=== PATIENT | female | born 1995 | race Caucasian/White ===

== ENCOUNTER 2016-08-26 11:40 | Emergency (ER) | payer BC ==
[2016-08-26] MEDS ORDERED: HYDROmorphone 1 MG/ML Syringe IVPUSH ONE (12:05)
[2016-08-26] MEDS ORDERED: Sodium Chloride 0.9% 10 ML Syringe FLUSH PRN ×2 (12:05→12:37)
[2016-08-26] MEDS ORDERED: Ondansetron 4 MG/2 ML SDV IVPUSH ONE (12:05)
[2016-08-26] MEDS ORDERED: Sodium Chloride 0.9% 1,000 ML IV ONE (12:05)
--- NOTE | 2016-08-26 12:13 | EDM.PDOC ---
ED HPI GENERAL MEDICAL PROBLEM - General Chief Complaint: Abdominal Pain Stated Complaint: ABDOMINAL PAIN Time Seen by Provider: 08/26/16 12:00 Source of Information: Reports: Patient History Limitations: Reports: No Limitations - History of Present Illness INITIAL COMMENTS - FREE TEXT/NARRATIVE: 21-year-old female presents for evaluation and treat of right lower quadrant abdominal pain. Patient reports that the abdominal pain woke her from sleep around 3 AM this morning. She describes the pain as a constant sharp pain and rates it as a 6-1/2 to 7/10. 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 She was went to work today but reports any bumps in the road and getting on and off the truck may be abdominal pain much worse. She reports associated symptoms of nausea and a decreased appetite. She states that she feels warm but has not had any fevers. She denies any vomiting, dysuria, hematuria or constipation. She reports that her urine did look darker this morning. Last bowel movement was yesterday. Reports it was small and hard. She has struggled with constipation in the past. Last intake was around 5 AM this morning. She had some yogurt and a few cherries. No surgeries to her abdomen. Patient is on oral contraceptive pills. No other medications. No chronic medical conditions. She reports she is supposed to start her menstrual cycle in the next few days. 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 Right Abdominal Pain Score (Numeric/FACES): 6 - Related Data Allergies Allergy/AdvReac Type Severity Reaction Status Date / Time No Known Allergies Allergy Verified 08/26/16 11:51 Home Meds: Home Meds Levonorgestrel-Ethin Estradiol [Lutera-28 Tablet] 08/26/16 [History] Magnesium Citrate [Citroma] 296 ml PO ASDIRECTED #1 bottle 08/26/16 [Rx] Past Medical History - Past Health History Medical/Surgical History: Denies Medical/Surgical History Psychiatric History: Reports: Depression Social & Family History - Tobacco Use Smoking Status *Q: Never Smoker Years of Tobacco use: 1 Month Tobacco Last Used: 2 weeks - Alcohol Use Days Per Week of Alcohol Use: 0 - Recreational Drug Use Recreational Drug Use: No ED ROS GENERAL - Review of Systems Review Of Systems: See Below Constitutional: Reports: Decreased Appetite. Denies: Fever GI/Abdominal: Reports: Abdominal Pain (RLQ), Nausea. Denies: Constipation, Vomiting : Reports: Other (reports dark urine: LMP about 3 weeks ago, she is on OCPs). Denies: Dysuria, Hematuria ED EXAM, GI/ABD - Physical Exam Exam: See Below Exam Limited By: No Limitations General Appearance: Alert, WD/WN, Mild Distress Respiratory/Chest: No Respiratory Distress, Lungs Clear, Normal Breath Sounds Cardiovascular: Normal Peripheral Pulses, Regular Rate, Rhythm, No Murmur GI/Abdominal: Soft, No Distention, Hypoactive Bowel Sounds, Tenderness (RLQ), Guarding, Rebound, McBurney's Sign, Psoas Sign, Obturator Sign Neurological: Alert, Oriented, Normal Cognition Psychiatric: Normal Affect, Normal Mood Skin Exam: Warm, Dry, Normal Color Course - Vital Signs Last Recorded V/S: Last Vital Signs Temp 36.9 C 08/26/16 11:52 Pulse 68 08/26/16 14:55 Resp 16 08/26/16 14:55 BP 120/80 08/26/16 14:55 Pulse Ox 100 08/26/16 14:55 - Orders/Labs/Meds Orders: Active Orders 24 hr Category Date Time Status Peripheral IV Care [RC] . DIRECTED Care 08/26/16 12:06 Active Peripheral IV Insertion Adult [OM.PC] Routine Oth 08/26/16 12:05 Ordered Labs: Laboratory Tests 08/26/16 08/26/16 08/26/16 Range/Units 12:10 12:10 12:10 WBC 5.26 (3.98-10.04) K/mm3 RBC 4.28 (3.98-5.22) M/mm3 Hgb 13.5 (11.2-15.7) gm/L Hct 39.9 (34.1-44.9) % MCV 93.2 (79.4-94.8) fl MCH 31.5 (25.6-32.2) pg MCHC 33.8 (32.2-35.5) g/dl RDW Std Deviation 42.4 (36.4-46.3) fL Plt Count 216 (182-369) K/mm3 MPV 10.4 (9.4-12.3) fl Neutrophils % (Manual) 61 H (40-60) % Band Neutrophils % 2 (0-10) % Lymphocytes % (Manual) 26 (20-40) % Atypical Lymphs % 0 % Monocytes % (Manual) 11 H (2-10) % Eosinophils % (Manual) 0 L (0.7-5.8) % Basophils % (Manual) 0 L (0.1-1.2) Platelet Estimate Adequate RBC Morph Comment Normal Sodium 140 (136-145) mEq/L Potassium 3.9 (3.5-5.1) mEq/L Chloride 105 (98-107) mEq/L Carbon Dioxide 25 (21-32) mEq/L Anion Gap 13.9 (5-15) BUN 9 (7-18) mg/dL Creatinine 0.8 (0.55-1.02) mg/dL Est Cr Clr Drug Dosing TNP Estimated GFR (MDRD) > 60 (>60) mL/min BUN/Creatinine Ratio 11.3 L (14-18) Glucose 105 (74-106) mg/dL Calcium 9.0 (8.5-10.1) mg/dL Total Bilirubin 0.6 (0.2-1.0) mg/dL AST 17 (15-37) U/L ALT 31 (14-59) U/L Alkaline Phosphatase 69 (46-116) U/L C-Reactive Protein 0.2 (<1.0) mg/dL Total Protein 7.3 (6.4-8.2) g/dl Albumin 3.9 (3.4-5.0) g/dl Globulin 3.4 gm/dL Albumin/Globulin Ratio 1.2 (1-2) HCG, Qual Negative (NEGATIVE) Urine Color (Yellow) Urine Appearance (Clear) Urine pH (5.0-8.0) Ur Specific [place] (1.005-1.030) Urine Protein (Negative) Urine Glucose (UA) (Negative) Urine Ketones (Negative) Urine Occult Blood (Negative) Urine Nitrite (Negative) Urine Bilirubin (Negative) Urine Urobilinogen (0.2-1.0) Ur Leukocyte Esterase (Negative) Urine RBC (0-5) /hpf Urine WBC (0-5) /hpf Ur Epithelial Cells (0-5) /hpf Amorphous Sediment (NOT SEEN) /hpf Urine Bacteria (FEW) /hpf Urine Mucus (FEW) /hpf 08/26/16 Range/Units 12:15 WBC (3.98-10.04) K/mm3 RBC (3.98-5.22) M/mm3 Hgb (11.2-15.7) gm/L Hct (34.1-44.9) % MCV (79.4-94.8) fl MCH (25.6-32.2) pg MCHC (32.2-35.5) g/dl RDW Std Deviation (36.4-46.3) fL Plt Count (182-369) K/mm3 MPV (9.4-12.3) fl Neutrophils % (Manual) (40-60) % Band Neutrophils % (0-10) % Lymphocytes % (Manual) (20-40) % Atypical Lymphs % % Monocytes % (Manual) (2-10) % Eosinophils % (Manual) (0.7-5.8) % Basophils % (Manual) (0.1-1.2) Platelet Estimate RBC Morph Comment Sodium (136-145) mEq/L Potassium (3.5-5.1) mEq/L Chloride (98-107) mEq/L Carbon Dioxide (21-32) mEq/L Anion Gap (5-15) BUN (7-18) mg/dL Creatinine (0.55-1.02) mg/dL Est Cr Clr Drug Dosing Estimated GFR (MDRD) (>60) mL/min BUN/Creatinine Ratio (14-18) Glucose (74-106) mg/dL Calcium (8.5-10.1) mg/dL Total Bilirubin (0.2-1.0) mg/dL AST (15-37) U/L ALT (14-59) U/L Alkaline Phosphatase (46-116) U/L C-Reactive Protein (<1.0) mg/dL Total Protein (6.4-8.2) g/dl Albumin (3.4-5.0) g/dl Globulin gm/dL Albumin/Globulin Ratio (1-2) HCG, Qual (NEGATIVE) Urine Color Yellow (Yellow) Urine Appearance Slt cloudy H (Clear) Urine pH 8.5 H (5.0-8.0) Ur Specific [place] 1.020 (1.005-1.030) Urine Protein 1+ H (Negative) Urine Glucose (UA) Negative (Negative) Urine Ketones Negative (Negative) Urine Occult Blood Negative (Negative) Urine Nitrite Negative (Negative) Urine Bilirubin Negative (Negative) Urine Urobilinogen 1.0 (0.2-1.0) Ur Leukocyte Esterase Negative (Negative) Urine RBC 0-5 (0-5) /hpf Urine WBC 0-5 (0-5) /hpf Ur Epithelial Cells 0-5 (0-5) /hpf Amorphous Sediment Many H (NOT SEEN) /hpf Urine Bacteria Occasional (FEW) /hpf Urine Mucus Few (FEW) /hpf Meds: Medications Discontinued Medications Generic Name Dose Route Start Last Admin Trade Name Freq PRN Reason Stop Dose Admin Diatrizoate Meglum/Diatrizoate Sod 120 ml 08/26/16 12:38 08/26/16 13:17 Gastrografin 37% PO 08/26/16 12:39 90 ml ONETIME ONE Administration Hydromorphone HCl 1 mg 08/26/16 12:05 08/26/16 12:25 Dilaudid IVPUSH 08/26/16 12:06 1 mg ONETIME ONE Administration Sodium Chloride 1,000 mls @ 999 mls/hr 08/26/16 12:05 08/26/16 12:23 Normal Saline IV 08/26/16 13:05 999 mls/hr ONETIME ONE Administration Iopamidol 150 ml 08/26/16 12:37 08/26/16 13:16 Isovue-300 (61%) IVPUSH 08/26/16 12:38 125 ml ONETIME ONE Administration Ketorolac Tromethamine 30 mg 08/26/16 13:54 08/26/16 14:01 Toradol IVPUSH 08/26/16 13:55 30 mg ONETIME ONE Administration Ondansetron HCl 4 mg 08/26/16 12:05 08/26/16 12:24 Zofran IVPUSH 08/26/16 12:06 4 mg ONETIME ONE Administration Sodium Chloride 10 ml 08/26/16 12:05 08/26/16 12:27 Saline Flush FLUSH 10 ml ASDIRECTED PRN Administration Keep Vein Open Sodium Chloride 10 ml 08/26/16 12:37 08/26/16 13:17 Saline Flush FLUSH 10 ml ONETIME PRN Administration IV FLUSH - Radiology Interpretation Free Text/Narrative:: CT of the abdomen and pelvis with contrast impression per Dr. Smith: Impression: 1. Increased stool within the cecum and right colon with lesser amounts of increased stool throughout other portions of the colon. 2. Small amount of free fluid within the cul-de-sac believed to be physiologic. 3. Other incidental findings. - Re-Assessments/Exams Free Text/Narrative Re-Assessment/Exam: 08/26/16 12:13 Exam is highly suspicious for acute appendicitis. Will give zofran, 1 L NS and Dilaudid for pain control. Labs and Ct ordered. 08/26/16 13:55 Labs returned. WBC is 5.25 with 2 bands, hgb is 13.5 and plts are 216 HCG is negative CRP is normal at 0.2 Sodium is 140, potassium is 3.9 and chloride is 105. Anion gap is 13.9 and glucose is 103 Ua has 1+ protein; no leuks or nitrites. Reviewed labs and CT with the patient. Continues to have discomfort. Will give toradol at this time for pain relief. 08/26/16 14:32 Pain improved after IV toradol. Will discharge home with a bottle of mag citrate. Discharge instructions as documented. Departure - Departure Time of Disposition: 14:35 Disposition: Home, Self-Care 01 Condition: fair Clinical Impression: Constipation - Discharge Information Prescriptions: Magnesium Citrate [Citroma] 296 ml PO ASDIRECTED #1 bottle Instructions: Constipation, Adult, [id number] Referrals: Chivo De Paz MD [Primary Care Provider] - Forms: ED Department Discharge Additional Instructions: make sure you Drink plenty of fluids. The one bottle of mag citrate over an hour. Expect to have one or 2 large bowel movements today. For normal bowel maintenance recommend MiraLax available [id number] every day or every other day. Follow up with family medicine or internal medicine for symptoms do not improve. Recommend Ailyn Louis at the [facility]. Call [phone] to schedule with her. Please return to the ER should your symptoms change or worsen. - My Orders Last 24 Hours: My Active Orders 08/26/16 12:05 Peripheral IV Insertion Adult [OM.PC] Routine 08/26/16 12:06 Peripheral IV Care [RC] . DIRECTED - Assessment/Plan Last 24 Hours: My Active Orders 08/26/16 12:05 Peripheral IV Insertion Adult [OM.PC] Routine 08/26/16 12:06 Peripheral IV Care [RC] . DIRECTED
[2016-08-26] MEDS ORDERED: Iopamidol 612 MG/ML 150 ML Bottle IVPUSH ONE (12:37)
[2016-08-26] MEDS ORDERED: Diatrizoate Meglumine/Diatrizoate Sodium 37% 120 ML Bottle PO ONE (12:38)
[2016-08-26] MEDS ORDERED: Ketorolac 30 MG/ML SDV IVPUSH ONE (13:54)
--- NOTE | 2016-08-26 14:01 | CT ---
CT abdomen and pelvis Technique: Multiple axial sections were obtained from above the dome of the diaphragm inferiorly through the pubic symphysis. Intravenous and oral contrast has been given. Delayed images were obtained through the bladder. Findings: Slight scarring or atelectasis is incidentally noted within the left lung base. Liver shows no focal parenchymal abnormality. Spleen appears within normal limits. Kidneys show symmetric contrast enhancement without hydronephrosis or mass. Adrenal glands show no nodule. Pancreas is within normal limits. Gallbladder shows no calcified gallstones. Aorta shows no aneurysmal dilatation. No retroperitoneal adenopathy or mesenteric abnormalities are seen. There is a fair amount of stool and gas noted within the cecum and right colon. Lesser stool is seen throughout other portions of the colon. Small amount of free fluid is seen within the cul-de-sac. No additional pelvic abnormality is noted. No free fluid or inflammatory change is seen. No small bowel dilatation is seen. Appendix is not definitely visualized. Delayed images shows contrast within the bladder. Bone window settings were reviewed which appears within normal limits. Impression: 1. Increased stool within the cecum and right colon with lesser amounts of increased stool throughout other portions of the colon. 2. Small amount of free fluid within the cul-de-sac believed to be physiologic. 3. Other incidental findings. Diagnostic code #3
[2016-08-26 15:01] VITALS: BP 120/80
== END 2016-08-26 14:55 | disposition home or self-care (01) ==
LOC: JD.ED 11:40
DX: K59.00 Constipation, unspecified (principal); F32.9 Major depressive disorder, single episode, unspecified
CPT/HCPCS: 36415; 74177; 80053; 81001; 84703; 85025; 86140; 96361; 96374; 96375; 99284; J1170; J1885; J2405; J7040; J7050; Q9963; Q9967

== ENCOUNTER 2016-12-21 18:54 | Emergency (ER) | payer BC ==
[2016-12-21 19:07] VITALS: BP 126/74
--- NOTE | 2016-12-21 19:30 | EDM.PDOC ---
ED HPI GENERAL MEDICAL PROBLEM - General Chief Complaint: Lower Extremity Injury/Pain Stated Complaint: FALL Time Seen by Provider: 12/21/16 19:28 Source of Information: Reports: Patient History Limitations: Reports: No Limitations - History of Present Illness INITIAL COMMENTS - FREE TEXT/NARRATIVE: 21-year-old female presents to the ED with an acute injury to her right ankle. She states she stepped down into a right and created an inversion and eversion twist injury to her right ankle. She states the right lateral aspect of ankle is swollen but the medial aspect of the ankles where the pain is. She is very limited ability to weight-bear since time of injury. No previous surgery to the right ankle. Onset: Today Onset Date: 12/21/16 Onset Time: 19:00 Duration: Minutes: Location: Reports: Lower Extremity, Right (Right lateral and medial ankle.) Quality: Reports: Ache, Throbbing Severity: Moderate Improves with: Reports: None Worsens with: Reports: Rest, Other Context: Reports: Other. Denies: Activity, Exercise, Lifting, Sick Contact, Trauma Associated Symptoms: Reports: No Other Symptoms (Inversion injury with a twist.) Treatments PROJECT GEOLOGIST: Reports: Other (see below) Other Treatments PROJECT GEOLOGIST: NONE Right Feet Pain Score (Numeric/FACES): 1 - Related Data Allergies Allergy/AdvReac Type Severity Reaction Status Date / Time No Known Allergies Allergy Verified 08/26/16 11:51 Home Meds: Home Meds Levonorgestrel-Ethin Estradiol [Lutera-28 Tablet] 1 tab PO DAILY 08/26/16 [ History] oxyCODONE HCl/Acetaminophen [Percocet 5-325 mg Tablet] 1 - 2 each PO Q4H PRN # 15 tablet 12/21/16 [Rx] Past Medical History - Past Health History Medical/Surgical History: Denies Medical/Surgical History Psychiatric History: Reports: Depression Social & Family History - Tobacco Use Smoking Status *Q: Never Smoker Years of Tobacco use: 1 Month Tobacco Last Used: 2 weeks - Caffeine Use Caffeine Use: Reports: Coffee - Alcohol Use Days Per Week of Alcohol Use: 0 - Recreational Drug Use Recreational Drug Use: No - Living Situation & Occupation Living situation: Reports: Single Occupation: Employed Review of Systems - Review of Systems Review Of Systems: See Below Constitutional: Reports: No Symptoms Eyes: Reports: No Symptoms Ears: Reports: No Symptoms Nose: Reports: No Symptoms Mouth/Throat: Reports: No Symptoms Respiratory: Reports: No Symptoms Cardiovascular: Reports: No Symptoms GI/Abdominal: Reports: No Symptoms Genitourinary: Reports: No Symptoms Musculoskeletal: Reports: No Symptoms Skin: Reports: No Symptoms Neurological: Reports: No Symptoms Psychiatric: Reports: No Symptoms ED EXAM, GENERAL - Physical Exam Exam: See Below Exam Limited By: No Limitations General Appearance: Alert, WD/WN, Mild Distress Peripheral Pulses: 3+: Posterior Tibial (L), Posterior Tibial (R), Dorsalis Pedis (L), Dorsalis Pedis (R) Extremities: Other (Examination was limited to the right lower extremity. She has no pain on firm palpation over the proximal fibula. Mild pain medial ankle on compression of mid shaft tib-fib. Ankle itself shows some swelling on the lateral aspect but no localized pain to any of the major ligaments. She does have pain over the deltoid ligament medial aspect of her right ankle. She has limited ability to dorsiflex or plantarflex.) Course - Vital Signs Last Recorded V/S: Last Vital Signs Temp 37.1 C 12/21/16 19:06 Pulse 68 12/21/16 19:06 Resp 20 12/21/16 19:06 BP 126/74 12/21/16 19:06 Pulse Ox 99 12/21/16 19:06 - Orders/Labs/Meds Orders: Active Orders 24 hr Category Date Time Status Ankle Min 3V Rt [CR] Stat Exams 12/21/16 19:28 Taken - Radiology Interpretation Free Text/Narrative:: 21-year-old female attends the ED with an acute injury to her right ankle. Down into her right and created an inversion then twisting injury to her right ankle. This caused her to fall to the ground. She reports pain is mostly in the medial aspect of the ankle although there is swelling on the lateral aspect. Examination shows minimal pain throughout the lateral ligaments. Pain over the deltoid ligament identified. Plan x-ray of the ankle to be obtained. - Re-Assessments/Exams Free Text/Narrative Re-Assessment/Exam: 12/21/16 20:15: X-rays of the right ankle are within normal limits showing no fractures. I reexamined the ankle and the ligaments are all intact. The deltoid ligament included. Plan Dandy wrap on during the day and off at night for the next 10 days. Nonweightbearing crutch walking for the next 4-5 days. Placed her also in a horse shoe or Aircast splint to support her ankle for the next 2 weeks. 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 She will use Motrin 600 mg every 6 hours as needed for relief of pain. I did supply her with 15 tablets of Percocet 07/24/24 one or 2 every 4-6 hours for pain not controlled by Motrin alone. Departure - Departure Time of Disposition: 20:08 Disposition: Home, Self-Care 01 Condition: Fair Clinical Impression: Moderate right ankle sprain Qualifiers: Encounter type: initial encounter Qualified Code(s): S93.401A - Sprain of unspecified ligament of right ankle, initial encounter - Discharge Information Prescriptions: oxyCODONE HCl/Acetaminophen [Percocet 5-325 mg Tablet] 1 - 2 each PO Q4H PRN # 15 tablet PRN Reason: pain relief. Instructions: Ankle Sprain, [id number] Referrals: PCP,Not In Area [Primary Care Provider] - Forms: ED Department Discharge, ED Return to Work/School Form Additional Instructions: Evaluation in the emergency room today in regards to acute injury to the right ankle primarily an inversion injury straining the lateral ligaments but also injury to the medial aspect right ankle. X-rays were done and did not reveal any broken bones. Stressing the ligaments reveal them to be intact without any major tears. It is therefore time to heal. Usually this is about 14 days to be completely healed where you could run again or go up steps without thinking about it. Initial treatment is Dandy wrap on during the day and off at night although you could leave it on all night tonight. Ice pack to the area one half hour out of every 4 hours for the next 2 days and after this may apply heat to the area. Expect some bruising to develop on the ankle and possibly travel down towards the toes. Sometimes occurs over the next week. Suggest nonweightbearing crutch walking for 4-5 days until he can put weight on her foot with minimal discomfort. To this you may use a good laced up shoe or boot with the horseshoe splint to help support the ankle ligaments for the next few weeks. Pain management is Motrin 6 mg every 6 hours. Percocet tabs 5/325 one or 2 every 4-6 hours for pain not relieved by Motrin alone as you may need them for the next few nights usually 2-3 and then the pain starts to lessen. Note given to excuse her from the work place for the next 9 days. Tentative return to work on January 01. - My Orders Last 24 Hours: My Active Orders 12/21/16 19:28 Ankle Min 3V Rt [CR] Stat - Assessment/Plan Last 24 Hours: My Active Orders 12/21/16 19:28 Ankle Min 3V Rt [CR] Stat
--- NOTE | 2016-12-23 12:50 | CR ---
Right ankle: Four views of the right ankle were obtained. Comparison: No prior study. Ankle mortise is symmetric. No acute fracture, dislocation or other bony abnormality is identified. Impression: 1. No abnormality is identified on right ankle exam. Diagnostic code #1
== END 2016-12-21 20:25 | disposition home or self-care (01) ==
LOC: JD.ED 18:54
DX: S93.401A Sprain of unspecified ligament of right ankle, initial encounter (principal); Z79.899 Other long term (current) drug therapy; X50.1XXA Overexertion from prolonged static or awkward postures, initial encounter
CPT/HCPCS: 73610-26-RT; 73610-RT; 99283; 99284

== ENCOUNTER 2021-10-16 08:29 | Inpatient (IN) | payer OTHER ==
[2021-10-16] MEDS ORDERED: Sodium Chloride 0.9% 10 ML Syringe FLUSH PRN (08:54)
[2021-10-16] MEDS ORDERED: Acetaminophen 325 MG Tab PO PRN ×2 (08:54→15:36)
[2021-10-16] MEDS ORDERED: Ondansetron 4 MG/2 ML SDV IVPUSH PRN (08:54)
[2021-10-16] MEDS ORDERED: Nalbuphine HCl 10 MG/ 1ML Amp IVPUSH PRN (08:54)
[2021-10-16] MEDS ORDERED: Calcium Carbonate 500 MG Tab.Chew PO PRN (08:54)
[2021-10-16] MEDS ORDERED: Oxytocin/Lactated Ringers 10 UNIT/1,000 ML BAG IV SCH (09:00)
[2021-10-16] MEDS: Ampicillin 2 GM in Sodium Chloride 0.9% 100 ML IV ONE (09:30)
[2021-10-16] MEDS: Lactated Ringers 1,000 ML IV SCH (09:30)
[2021-10-16] MEDS: Sodium Chloride 0.9% 10 ML Syringe FLUSH SCH (12:04)
[2021-10-16] MEDS: Ampicillin 1 GM in Sodium Chloride 0.9% 50 ML IV SCH (13:01)
[2021-10-16] MEDS: Oxytocin/Lactated Ringers 10 UNIT/1,000 ML BAG IV SCH (14:06)
[2021-10-16] MEDS ORDERED: Lidocaine 1% 50 ML MDV ONE (14:10)
[2021-10-16] MEDS: Lidocaine 1% 50 ML MDV INJECT ONE (14:15)
[2021-10-16] MEDS: Witch Hazel Medicated Pads 40/Jar TOP PRN (16:00)
[2021-10-16] MEDS: Benzocaine/Menthol 20%-0.5% Spray 78 GM Cannister TOP PRN (16:00)
[2021-10-16] MEDS: Docusate Sodium 100 MG Cap PO PRN (20:52)
[2021-10-18] MEDS: Ibuprofen 600 MG Tab PO PRN (04:49)
[2021-10-18 09:26] VITALS: BP 128/64; PULSE 65
[2021-10-18] MEDS: Measles, Mumps & Rubella Vaccine 0.5 ML SDV SUBCUT ONE (12:16)
== END 2021-10-18 13:04 | disposition home or self-care (01) | DRG 807 ==
LOC: JD.OBCHECK 08:29 → JD.OB 08:33 → JD.OBCHECK 08:54 → UNDOADMOB 09:02 → JD.OB 09:02 → OBSVTOIN 14:02 → JD.OB 14:03
PROVIDERS: ADMIT Obstetrics & Gynecology; ATTEND Obstetrics & Gynecology
PROC: 10E0XZZ Delivery of Products of Conception, External Approach (ICD-10-PCS; principal; 2021-10-16)
PROC: 0HQ9XZZ Repair Perineum Skin, External Approach (ICD-10-PCS; 2021-10-16)
DX: O99.824 Streptococcus B carrier state complicating childbirth (principal); Z37.0 Single live birth; Z3A.39 39 weeks gestation of pregnancy; O99.344 Other mental disorders complicating childbirth; F32.A Depression, unspecified; O70.0 First degree perineal laceration during delivery
CPT/HCPCS: 36415; 59025; 59409; 85025; 86592; 90471; 90707; A9270-GY; J0290; J2001; J2590; J7120

== ENCOUNTER 2023-08-04 07:56 | Emergency (ER) | payer OTHER, BC ==
[2023-08-04] MEDS ORDERED: Ketorolac 30 MG/ML SDV IM ONE (08:27)
[2023-08-04] MEDS: Ketorolac 15 MG/ML SDV IM ONE (08:43)
[2023-08-04] MEDS: Acetaminophen 325 MG Tab PO ONE (08:44)
[2023-08-04 10:02] VITALS: BP 126/63; PULSE 62
== END 2023-08-04 10:02 | disposition home or self-care (01) ==
LOC: JD.ED 07:56
DX: S92.425A Nondisplaced fracture of distal phalanx of left great toe, initial encounter for closed fracture (principal); Z79.899 Other long term (current) drug therapy; W20.8XXA Other cause of strike by thrown, projected or falling object, initial encounter; Y90.0 Blood alcohol level of less than 20 mg/100 ml
CPT/HCPCS: 73610; 73630; 96372; 99283; A9270; J1885

== ENCOUNTER 2023-12-22 15:22 | Emergency (ER) | payer BC, OTHER ==
[2023-12-22 17:05] VITALS: BP 101/67; PULSE 62
== END 2023-12-22 17:05 | disposition home or self-care (01) ==
LOC: JD.ED 15:22
DX: M25.561 Pain in right knee (principal); M25.461 Effusion, right knee; Z79.899 Other long term (current) drug therapy
CPT/HCPCS: 73562-26-RT; 73562-RT; 99283